=== PATIENT | female | born 1990 | race Caucasian/White ===

== ENCOUNTER 2022-05-03 08:38 | Outpatient (CLI) | payer OTHER, SELFPAY ==
[2022-05-03 14:16] LABS: Albumin* 4.6 g/dL (3.3-5.0)
[2022-05-03 14:17] LABS: Chloride* 107 mmol/L (96-114); Potassium* 4.3 mmol/L (3.6-5.1); Sodium* 141 mmol/L (135-149)
[2022-05-03 14:19] LABS: Alkaline Phosphatase* 62 U/L (40-150); Aspartate Amino Transferase* 23 U/L (12-35); Bilirubin Total* 0.5 mg/dL (0.1-1.5); Blood Urea Nitrogen* 11 mg/dL (5-24); Carbon Dioxide* 25 mmol/L (20-32); Cholesterol* 190 mg/dL (90-199); Creatinine* 0.9 mg/dL (0.5-1.5); Estimated Glomerular Filt Rate 87 ml/min; Total Protein* 7.9 g/dL (6.0-8.3)
[2022-05-03 14:20] LABS: Alanine Aminotransferase* 18 U/L (4-35); Calcium* 9.6 mg/dL (8.4-10.6); Glucose* 88 mg/dL (60-115); HDL Cholesterol* 61 mg/dL (>=50); LDL Cholesterol Calculated 103 mg/dL (<100); Triglycerides* 128 mg/dL (40-149)
== END 2022-05-03 08:39 | disposition home or self-care (01) ==
LOC: LKVREF 08:38
PROVIDERS: PCP Physician Assistant Medical; Visit Provider Physician Assistant Medical
DX: Z00.00 Encounter for general adult medical examination without abnormal findings (principal); Z83.49 Family history of other endocrine, nutritional and metabolic diseases; R79.89 Other specified abnormal findings of blood chemistry; Z13.6 Encounter for screening for cardiovascular disorders
CPT/HCPCS: 80053; 80061; 84443

== ENCOUNTER 2023-05-07 08:00 | Outpatient (CLI) | payer OTHER, SELFPAY | END 2023-05-07 08:01 | disposition home or self-care (01) | LOC: NFLDREF 16:03 | PROVIDERS: PCP Physician Assistant Medical; Referring Provider Physician Assistant Medical; Visit Provider Physician Assistant Medical | DX: Z00.00 Encounter for general adult medical examination without abnormal findings (principal); R76.8 Other specified abnormal immunological findings in serum; R79.89 Other specified abnormal findings of blood chemistry; Z13.6 Encounter for screening for cardiovascular disorders; Z13.0 Encounter for screening for diseases of the blood and blood-forming organs and certain disorders involving the immune mechanism; Z13.1 Encounter for screening for diabetes mellitus | CPT/HCPCS: 80053; 80061; 84443; 86376 ==

== ENCOUNTER 2024-05-07 08:22 | Outpatient (CLI) | payer BC, SELFPAY | END 2024-05-07 08:23 | disposition home or self-care (01) | LOC: NFLDREF 05-09 03:13 | PROVIDERS: PCP Physician Assistant Medical; Referring Provider Physician Assistant Medical; Visit Provider Physician Assistant Medical | DX: R79.89 Other specified abnormal findings of blood chemistry (principal); Z13.6 Encounter for screening for cardiovascular disorders; Z13.9 Encounter for screening, unspecified | CPT/HCPCS: 80053; 80061; 84439; 84443 ==

== ENCOUNTER 2024-05-11 08:16 | Outpatient (CLI) | payer BC, SELFPAY | END 2024-05-11 08:17 | disposition home or self-care (01) | LOC: LKVREF 08:20 | PROVIDERS: PCP Physician Assistant Medical; Visit Provider Physician Assistant Medical | DX: E03.9 Hypothyroidism, unspecified (principal) | CPT/HCPCS: 86376 ==

== ENCOUNTER 2024-06-22 08:28 | Outpatient (CLI) | payer BC, SELFPAY | END 2024-06-22 08:29 | disposition home or self-care (01) | LOC: NFLDREF 22:25 | PROVIDERS: PCP Physician Assistant Medical; Referring Provider Physician Assistant Medical; Visit Provider Physician Assistant Medical | DX: E03.9 Hypothyroidism, unspecified (principal) | CPT/HCPCS: 84443 ==

== ENCOUNTER 2025-01-08 09:14 | Outpatient (CLI) | payer BC, SELFPAY | END 2025-01-08 09:15 | disposition home or self-care (01) | LOC: NFLDREF 01-09 17:29 | PROVIDERS: PCP Physician Assistant Medical; Referring Provider Physician Assistant Medical; Visit Provider Physician Assistant Medical | DX: E03.9 Hypothyroidism, unspecified (principal) | CPT/HCPCS: 84443 ==